=== PATIENT | male | born 1940 | race Caucasian/White ===

== ENCOUNTER 2023-06-14 10:17 | Emergency (ER) | payer MEDICARE ==
[2023-06-14 10:53] LABS: #Monocytes 1.9 10x3/uL (0.0-1.1); #Neutrophils 17.8 10x3/uL (1.5-8.4); %Basophils 0.1 % (0.0-2.0); %Lymphocytes 3.4 % (18.0-47.0); %Monocytes 9.2 % (0.0-10.0); %Neutrophils 85.9 % (40.0-75.0); Hematocrit 40.9 % (38.8-50.0); Hemoglobin 13.8 g/dL (13.5-17.5); Mean Corpuscular HGB CONC 33.7 g/dL (32.0-36.0); Mean Corpuscular Hemoglobin 30.3 pg (27.0-33.0); Mean Corpuscular Volume 89.9 fl (81.2-95.1); Platelet Count 179 10x3/uL (150-450); RBC Distribution Width 12.9 % (11.5-14.5); Red Blood Cell (RBC) Count 4.55 10x6/uL (4.32-5.72); White Blood Cell (WBC) Count 20.7 10x3/uL (3.5-10.5)
[2023-06-14 11:12] LABS: ALT (SGPT) 14 U/L (8-55); AST (SGOT) 18 U/L (5-34); Albumin 3.9 g/dL (3.4-4.8); Alkaline Phosphatase 52 U/L (40-110); Anion Gap 15 mmol/L (10-20); BUN (Urea Nitrogen) 19 mg/dL (8.4-25.7); Bilirubin, Total 0.9 mg/dL (0.2-1.2); Calc. Creatinine Clearance 0 mL/min (70-130); Calcium 9.2 mg/dL (7.8-10.44); Carbon Dioxide 21 mmol/L (23-31); Chloride 104 mmol/L (98-107); Estimated GFR 56; Globulin 2.4 g/dL (2.4-3.5); Glucose 197 mg/dL (83-110); Potassium 3.4 mmol/L (3.5-5.1); Protein, Total 6.3 g/dL (5.8-8.1); Sodium 137 mmol/L (136-145)
[2023-06-14 12:51] LABS: Bilirubin Neg (Negative); Blood, Urine 250 (Negative); Clarity Slightly Cloudy (Clear); Glucose, Urine (Dipstick) Normal (Negative); Ketone, Urine 15 mg/dL (Negative); Leukocyte 500 (Negative); Nitrite Positive (Negative); Protein, Urine (Dipstick) 100 mg/dl (Neg-Trace); Urobilinogen Normal mg/dL (Less than 2)
[2023-06-14] MEDS ORDERED: cefTRIAXone (ROCEPHIN) 1 GM VIAL ONE (13:07)
[2023-06-14 13:15] LABS: CAUTI Indications for Culture Fever or rigors
[2023-06-14 13:19] LABS: Bacteria/HPF 3+ HPF (None Seen); Mucous/LPF 2+ LPF (<2+)
[2023-06-14 13:20] LABS: RBC/HPF 21-50 HPF (0-3)
[2023-06-14 13:21] LABS: Urine Culture Reflex Yes Yes
== END 2023-06-14 21:36 | disposition short-term general hospital (02) ==
LOC: CSHERS 10:17
DX: N39.0 Urinary tract infection, site not specified (principal); I10 Essential (primary) hypertension
CPT/HCPCS: 36415; 71045; 80053; 81001; 85025; 87077; 87086; 87186; 93005; 96374; J0696

== ENCOUNTER 2023-07-29 14:18 | Emergency (ER) | payer MEDICARE | END 2023-07-29 15:11 | disposition home or self-care (01) | LOC: CSHERS 14:18 | DX: K02.9 Dental caries, unspecified (principal); I10 Essential (primary) hypertension; E78.5 Hyperlipidemia, unspecified; Z79.899 Other long term (current) drug therapy | CPT/HCPCS: 99283 ==

== ENCOUNTER 2024-05-06 10:23 | Emergency (ER) | payer MEDICARE ==
[2024-05-06] MEDS ORDERED: HYDROcodone/Acetaminophen 5/325 mg Tablet ONE (10:59)
[2024-05-06 11:44] LABS: #Basophils 0.03 10x3/uL (0.0-0.2); #Monocytes 0.82 10x3/uL (0.0-1.1); %Basophils 0.3 % (0.0-2.0); %Eosinophils 1.2 % (0.0-6.0); %Lymphocytes 15.3 % (18.0-47.0); %Monocytes 9.5 % (0.0-10.0); %Neutrophils 73.4 % (40.0-75.0); Hematocrit 37.6 % (38.8-50.0); Hemoglobin 12.4 g/dL (13.5-17.5); Mean Corpuscular Hemoglobin 30.2 pg (27.0-33.0); Mean Corpuscular Volume 91.7 fL (81.2-95.1); Mean Platelet Volume 10.1 fL (7.4-10.4); Platelet Count 150 10x3/uL (150-450); RBC Distribution Width 13.2 % (11.5-14.5); White Blood Cell (WBC) Count 8.6 10x3/uL (3.5-10.5)
[2024-05-06 12:00] LABS: ALT (SGPT) 12 U/L (8-55); AST (SGOT) 13 U/L (5-34); Albumin 3.5 g/dL (3.4-4.8); Alkaline Phosphatase 61 U/L (40-110); Anion Gap 11 mmol/L (10-20); BUN (Urea Nitrogen) 18 mg/dL (8.4-25.7); Bilirubin, Total 0.5 mg/dL (0.2-1.2); Calc. Creatinine Clearance 0 mL/min (70-130); Calcium 9.1 mg/dL (7.8-10.44); Carbon Dioxide 27 mmol/L (23-31); Chloride 104 mmol/L (98-107); Estimated GFR 53; Globulin 2.2 g/dL (2.4-3.5); Glucose 218 mg/dL (83-110); Potassium 4.3 mmol/L (3.5-5.1); Protein, Total 5.7 g/dL (5.8-8.1); Sodium 138 mmol/L (136-145)
[2024-05-06 15:00] LABS: Uric Acid 7.2 mg/dL (3.5-7.2)
== END 2024-05-06 12:30 | disposition home or self-care (01) ==
LOC: CSHERS 10:23
DX: L03.116 Cellulitis of left lower limb (principal); I11.0 Hypertensive heart disease with heart failure; I50.9 Heart failure, unspecified; E78.5 Hyperlipidemia, unspecified; Z79.899 Other long term (current) drug therapy
CPT/HCPCS: 36416; 80053; 84550; 85025; 86140; 99283

== ENCOUNTER 2025-02-09 08:54 | Outpatient (CLI) | payer MEDICARE | END 2025-02-09 08:55 | disposition home or self-care (01) | LOC: CSHSLEEP 08:54 | DX: G47.33 Obstructive sleep apnea (adult) (pediatric) (principal); R53.83 Other fatigue; E11.9 Type 2 diabetes mellitus without complications; E66.9 Obesity, unspecified; Z68.41 Body mass index [BMI] 40.0-44.9, adult; R06.83 Snoring; G47.00 Insomnia, unspecified; R35.1 Nocturia; J44.9 Chronic obstructive pulmonary disease, unspecified; I50.9 Heart failure, unspecified; R09.02 Hypoxemia | CPT/HCPCS: 95811 ==

== ENCOUNTER 2025-06-30 15:00 | Emergency (ER) | payer MEDICARE | END 2025-06-30 15:54 | disposition home or self-care (01) | LOC: CSHERS 15:00 | DX: H10.502 Unspecified blepharoconjunctivitis, left eye (principal); I10 Essential (primary) hypertension; Z95.0 Presence of cardiac pacemaker | CPT/HCPCS: 99282 ==